=== PATIENT | female | born 1980 | race Caucasian/White ===

== ENCOUNTER 2018-09-08 14:12 | Inpatient (IN) | payer OTHER ==
[~2018-09-08] VITALS: Ht 170.2 cm; Wt 147.4 kg
--- NOTE | ~2018-09-08 | CON ---
[address] [address] CONSULTATION Name: YINA SINGH Room: [address] IN M.R.#: [id number] Admission: 09/08/18 Attend Phys: Brad Schaefer Discharge: Date of : 84 Report #: [id number] THIS REPORT FOR: //name// CC: Monse Lynn DATE OF SERVICE: 09/09/2018 ADDENDUM REQUESTING PHYSICIAN: Dr. Yazan Lynn Consult number is [id number]. The patient with chronic constipation who presents with rectal pain. CT indicative of rectal inflammation and stranding. The patient denies any hematochezia or melena, but has leukocytosis. We will consider a flex sigmoidoscopy to further assess abnormal CT findings. Meanwhile, the patient should be on a good bowel regimen including Linzess and MiraLax. By: [id number] Paulino MD /nt
--- NOTE | ~2018-09-08 | CON ---
[address] [address] CONSULTATION Name: YINA SINGH Room: [address] IN .R.#: [id number] Admission: 09/08/18 Attend Phys: Brad Schaefer Discharge: Date of : 84 Report #: [id number] THIS REPORT FOR: //name// CC: Monse Lynn DICTATED BY: Lida Hodges [facility] DATE OF SERVICE: 09/09/2018 Please note, at the time of this dictation, the patient was seen and physically examined by myself. REASON FOR CONSULTATION: Constipation, rectal pain. HISTORY OF PRESENT ILLNESS: This is a 38-year-old female who presented to the Emergency Room with constipation and rectal pain. She states she has not had a bowel movement since last Sunday, which is unusual for her. She may go a day or 2 and will usually then go, but, however, she has tried laxatives and enema without any relief prompting her to come to the Emergency Room. She denied any fever, chills, blood in her stools, nausea or vomiting at the time of admission. She has never seen a GI doctor before. The patient has received some GoLYTELY since last night to help her go, which she has started to go, but she still feels that she has not fully evacuated her bowels. ALLERGIES: No known drug allergies. MEDICATIONS: From home is Wellbutrin. PAST MEDICAL HISTORY: Polycystic ovarian syndrome, anemia. PAST SURGICAL HISTORY: Cholecystectomy, tubal ligation and lumbar diskectomy. FAMILY HISTORY: Negative for any GI or female cancers. SOCIAL HISTORY: Denies any alcohol. She quit smoking 13 weeks ago and denies any illegal drug use. REVIEW OF SYSTEMS: Twelve-point review of systems is essentially negative except what is mentioned in the HPI. PHYSICAL EXAMINATION: VITAL SIGNS: Temperature 37.3, pulse 87, respirations 15, blood pressure 127/71. HEART: [place] [id number] CONSULTATION Name: YINA SINGH Room: [address] IN [facility]#: [id number] Admission: 09/08/18 Attend Phys: Brad Schaefer Discharge: Date of : 84 Report #: [id number] LUNGS: Clear. ABDOMEN: Soft, positive bowel sounds in all 4 quadrants with no masses or tenderness noted, only some rectal discomfort noted. LABORATORY DATA: Hemoglobin 13.3, white count of 14.4, platelets 287. GFR is 63. Her lipase was 75. CT of the abdomen and pelvis showed large stool within the rectum without significant mural thickening, although there is some mild perirectal stranding, which raises possibility of some nonspecific proctitis and some prominent left mesorectal lymph node that may be reactive in nature. IMPRESSION: 1. Rectal pain. 2. Constipation, chronic. 3. Leukocytosis. 4. Abnormal CT in the rectal area, rectal stranding noted. PLAN: 1. Flexible sigmoidoscopy tomorrow. 2. Clears today and prep. 3. Further recommendations to be made once the procedure has been performed. Thank you for allowing us to participate in this patient's care. Please do not hesitate to call with any questions in regard to this consult. By: [id number] Paulino MD /nt
[~2018-09-08 14:12] MED LIST: HYDROCODONE-AP1 EAC6 PO; IBUPROFEN 800800 M1 PO; NOHOMEMEDICATIONS
[2018-09-08 14:41] VITALS: BP 164/97
[2018-09-08] MEDS ORDERED: WELLBUTRIN SR150 MG PO (14:45)
[2018-09-08 15:43] LABS: ABSOLUTE BASOPHILS 0.2 thou/uL (0.0-0.2); ABSOLUTE EOSINOPHILS 0.1 thou/uL (0.0-0.7); ABSOLUTE LYMPHOCYTES 1.6 thou/uL (0.8-5.3); ABSOLUTE MONOCYTES 0.9 thou/uL (0.0-1.2); ABSOLUTE NEUTROPHILS 11.6 thou/uL (1.6-8.1); BASOPHILS 1.1 %; EOSINOPHILS 0.9 %; HEMATOCRIT 40.1 % (37.0-47.0); HEMOGLOBIN 13.3 gm/dL (12.0-15.0); LYMPHOCYTES 11.2 %; MCHC 33.2 g/dL (28.0-37.0); MCV 87.4 fL (80.0-100.0); MONOCYTES 6.1 %; MPV 7.3 fl. (7.2-11.1); NUCLEATED RBCS 0 /100WBC; PLATELET COUNT* 287 thou/uL (150-400); POLYS 80.7 %; RBC 4.59 mil/uL (4.20-5.00); RDW-CV 13.3 % (10.5-14.5); WBC 14.4 thou/uL (4.0-11.0)
[2018-09-08 16:04] LABS: CALCIUM 8.8 mg/dL (8.5-10.1); POTASSIUM 4.1 mmol/L (3.5-5.1)
[2018-09-08 16:07] LABS: ALBUMIN 3.6 g/dL (3.4-5.0); TOTAL BILIRUBIN 0.2 mg/dL (<0.1-1.0); TOTAL PROTEIN 7.6 g/dL (6.4-8.2)
[2018-09-08 17:47] LABS: URINE BILIRUBIN NEGATIVE (Negative); URINE BLOOD NEGATIVE (Negative); URINE CLARITY CLEAR; URINE COLOR YELLOW; URINE GLUCOSE-RANDOM NEGATIVE (Negative); URINE KETONES NEGATIVE (Negative); URINE LEUKOCYTES-REFLEX NEGATIVE (Negative); URINE NITRITE-REFLEX NEGATIVE (Negative); URINE PROTEIN NEGATIVE (Negative); URINE SPECIFIC GRAVITY <= 1.005 (1.005-1.030); URINE UROBILINOGEN 0.2 E.U./dl (0.2-1.0)
[2018-09-08 19:15] VITALS: BP 164/97
[2018-09-08 20:00] VITALS: BP 129/72
--- NOTE | 2018-09-09 05:20 | NUR ---
PT ARRIVED TO FLOOR FROM ER AT APPROXIMATELY 1930 ACCOMPANIED BY AND MOTHER. PT ORIENTED TO ROOM AND FLOOR, DATABASES COMPLETED AND PAPERWORK SIGNED. PT PLEASANT AND COOPERATIVE WITH CARES. PT ARRIVED FROM ED WITH SL TO LEFT FOREARM. IV FLUIDS STARTED PER ORDERS AND CIPRO AND FLAGYL GIVEN. NEW IV STARTED TO RIGHT FOREARM WHEN FIRST IV INFILTRATED. GOLYTELY OBTAINED FROM PHARMACY, FLAVORING AGENT OBTAINED BY TYPEWRITER ASSEMBLER. PROCESS EXPLAINED TO PT WHO PROCEEDED TO DRINK SAME. PT HAD LARGE STOOL SHORTLY AFTER ARRIVAL TO FLOOR AND ANOTHER SMALLER STOOL AT APPROX 0300. IV FENTANYL ONCE FOR PAIN. USES CALL LIGHT APPROPRIATELY. CALL LIGHT AND FREQUENTLY USED ITEMS WITHIN REACH. WILL CONTINUE TO MONITOR.
[2018-09-09 08:00] VITALS: BP 127/71
--- NOTE | 2018-09-09 15:32 | NUR ---
SW met with pt to complete initial assessment, introduce self, and SW role. Pt alert, oriented, pleasant. Pt lives at home with her and family. Pt independent with ADLs and mobility and does not anticipate any dc needs. SW to continue to follow to assist with safe dc planning if needs arise.
[2018-09-09 16:00] VITALS: BP 122/67
--- NOTE | 2018-09-09 17:00 | NUR ---
PT A&Ox4. UP AD LEONARD. VITALS STABLE. IV PATENT, INFUSING. MULTIPLE LOOSE BM TODAY. FINISHED BOWEL PREP, WORKING ON BOTTLE OF MIRILAX RIGHT NOW. BARRIER CREAM GIVEN FOR SORE BOTTOM. COLONOSCOPY SCHEDULED FOR TOMORROW. CALL LIGHT WITHIN REACH. WILL CONTINUE TO MONITOR.
[2018-09-09 21:30] VITALS: BP 125/71
--- NOTE | 2018-09-10 05:56 | NUR ---
PT ALERT AND ORIENTED. VSS ON RA. ASSESSMENT COMPLETED AND CHARTED. PT ON BOWEL PREP FOR COLONOSCOPY. HAD BM MULTIPLE TIMES THIS SHIFT. NO PAIN MEDS GIVEN THIS SHIFT. PT ON CLR LIQUID DIET. ABX INFUSED ORDERED. PT APPROPRIATE AND PLEASANT. HOURLY ROUNDINGS MADE. WILL CONTINUE TO MONITOR.
[2018-09-10] MEDS ORDERED: MIRALAX17 GM PO (09:29)
[2018-09-10] MEDS ORDERED: FLAGYL500 M1 PO (09:29)
[2018-09-10] MEDS ORDERED: LINZESS72 MCG PO (09:29)
[2018-09-10] MEDS ORDERED: CIPRO500 MG PO (09:29)
[2018-09-10] MEDS ORDERED: TRAMADOL 50 MG50 MG PO (09:29)
[2018-09-10 10:30] VITALS: BP 90/64
[2018-09-10 12:04] VITALS: BP 95/60
[2018-09-10 12:24] VITALS: BP 95/60
--- NOTE | 2018-09-10 13:51 | NUR ---
PT DISCHARGED WITH NURSING STAFF AND SPOUSE TO HOME. PT STABLE UPON DISCHARGE. TOLERATED LUNCH. PAPER PRESCRIPTIONS AND CARE NOTES GIVEN. IV OUT. PERSONAL BELONGINGS SENT WITH PT.
--- NOTE | 2018-09-11 15:06 | PATH ---
[address] [address] PATHOLOGY RPT PROCEDURE Name: ERICKA SINGH Room: [address] IN .R.#: [id number] Admission: 09/08/18 Date of : 84 Discharge: 09/10/18 Report #: [id number] Path Case #: [id number] [facility] Accession Number: [id number] . 01 Material submitted: . rectosigmoid junction - RECTO-SIGMOID COLON POLYP . 01 Clinical history: . Other specified diseases of anus and rectum . 02 Diagnosis: Rectosigmoid polyp: - Tubular adenoma, negative for high-grade dysplasia. (FARHAN:rina; 09/11/2018) QMS/09/11/2018 . 02 Electronically signed: . See Dueñas MD, Pathologist NPI- [id number] . 01 Gross description: . The specimen is received in formalin, labeled "Ericka Singh, rectal sigmoid polyp", is an irregular fragment of dewitt rubbery soft tissue measuring 0.8 x 0.5 x 0.2 cm, bisected and entirely submitted in A1. (SWS; 09/10/2018) . . . . . . . . . . SHS/SHS . 02 Pathologist provided ICD-10: D12.7 . 02 CPT . 691370 Specimen Comment: A courtesy copy of this report has been sent to Specimen Comment: [phone], , . Specimen Comment: Report sent to ,DR MAXWELL / DR ALMANZA Performed at: [address] [id number] [address] [address] PATHOLOGY RPT PROCEDURE Name: ERICKA SINGH Room: [address]#: [id number] Admission: 09/08/18 Date of : 84 Discharge: 09/10/18 Report #: [id number] Path Case #: [id number] MD Silver Ferrer MD Phone: [phone] Performed at: 02 [facility] [address] [place], [place], [place] [id number] MD See Dueñas MD Phone: [phone]
== END 2018-09-10 13:54 | disposition home or self-care (01) | DRG 372 ==
LOC: M.ERS 14:12 → M.ORTHSURG 18:06 → M.TBA-ER 18:06 → M.ORTHSURG 19:36
PROVIDERS: Nurse Practitioner Family; ADMIT Internal Medicine
PROC: 0DBP8ZZ Excision of Rectum, Via Natural or Artificial Opening Endoscopic (ICD-10-PCS; principal; 2018-09-10)
PROC: 0DBN8ZZ Excision of Sigmoid Colon, Via Natural or Artificial Opening Endoscopic (ICD-10-PCS; principal; 2018-09-10)
DX: A04.9 Bacterial intestinal infection, unspecified (principal); Z68.43 Body mass index [BMI] 50.0-59.9, adult; E28.2 Polycystic ovarian syndrome; K59.09 Other constipation; D72.829 Elevated white blood cell count, unspecified; K64.8 Other hemorrhoids; Z90.49 Acquired absence of other specified parts of digestive tract; Z79.899 Other long term (current) drug therapy; E66.01 Morbid (severe) obesity due to excess calories